=== PATIENT | male | born 1990 | race Caucasian/White ===

== ENCOUNTER 2017-12-21 10:38 | Inpatient (IN) | payer BC ==
[2017-12-21 11:04] VITALS: BMI 30.1
--- NOTE | 2017-12-21 13:10 | HP ---
CIWA Score - CIWA Score Nausea/Vomitin (vomited x 2) Muscle Tremors: 4-Moderate,w/Arms Extend Anxiety: 4-Mod. Anxious/Guarded Agitation: 4-Moderately Restless Paroxysmal Sweats: 1-Minimal Palms Moist Orientation: 0-Oriented Tacttile Disturbances: 0-None Auditory Disturbances: 0-None Visual Disturbances: 0-None Headache: 1-Very Mild CIWA-Ar Total Score: 17 Admission ROS S - HPI Chief Complaint: Alcohol withdrawal symptoms Allergies/Adverse Reactions: Allergies Allergy/AdvReac Type Severity Reaction Status Date / Time No Known Allergies Allergy Verified 12/21/17 13:02 History of Present Illness: 27 years old with 5 years of alcohol dependence is seeking admission to detox. Patient denies previous detox treatment and reports insignificant period of sobriety. He has medical history of anxiety and depression. He denies suicide attempt and suicidal ideation at this time. This is his first admission to [facility]. Exam Limitations: No Limitations - Ebola screening Have you traveled outside of the country in the last 21 days: No Have you had contact with anyone from an Ebola affected area: No Have you been sick,other than usual withdrawal symptoms: No Do you have a fever: No - Review of Systems Constitutional: Chills, Loss of Appetite, Malaise, Night Sweats, Changes in sleep EENT: reports: No Symptoms Reported Respiratory: reports: No Symptoms reported Cardiac: reports: No Symptoms Reported GI: reports: Diarrhea (x1), Nausea, Poor Appetite, Poor Fluid Intake, Vomiting ( x 2), Abdominal cramping : reports: No Symptoms Reported Musculoskeletal: reports: No Symptoms Reported Integumentary: reports: Dryness Neuro: reports: Tingling, Tremors Endocrine: reports: No Symptoms Reported, Flushing Hematology: reports: No Symptoms Reported Psychiatric: reports: Orientated x3, Anxious, Depressed Other Systems: Reviewed and Negative Patient History - Patient Medical History Hx Anemia: No Hx Asthma: No Hx Chronic Obstructive Pulmonary Disease (COPD): No Hx Cardiac Disorders: No Hx Congestive Heart Failure: No Hx Hypertension: No Hx Hypercholesterolemia: No HX Cerebrovascular Accident: No Hx Seizures: No Hx Diabetes: No Hx Gastrointestinal Disorders: No Hx Liver Disease: No Hx Genitourinary Disorders: No Hx Sexually Transmitted Disorders: No Hx Renal Disease (ESRD): No Hx Thyroid Disease: No Hx Human Immunodeficiency Virus (HIV): No (Negative 2014) Hx Hepatitis C: No Hx Depression: Yes Hx Suicide Attempt: No (Denies suicidal attempt and suicidal ideation at this time) Hx Bipolar Disorder: No Hx Schizophrenia: No Other Medical History: Anxiety, PTSD - Patient Surgical History Past Surgical History: No - PPD History Previous Implant?: No Documented Results: Negative w/o proof Implanted On Prior [facility] Admission?: No PPD to be Administered?: Yes - Reproductive History Patient is a Female of Child Bearing Age (11 -55 yrs old): No (MALE) - Smoking Cessation Smoking history: Current every day smoker Have you smoked in the past 12 months: Yes Aproximately how many cigarettes per day: 5 Hx Chewing Tobacco Use: No Initiated information on smoking cessation: Yes 'Breaking Loose' booklet given: 12/21/17 - Substance & Tx. History Hx Alcohol Use: Yes Hx Substance Use: Yes Substance Use Type: Alcohol Hx Substance Use Treatment: Yes - Substances Abused Alcohol Route: Oral Frequency: Daily Amount used: 15 CANS BEER/12OZ Age of first use: 22 Date of Last Use: 12/20/17 Alprazolam (Xanax) Route: Oral Frequency: Daily Amount used: 3/ 1MG Age of first use: 24 Date of Last Use: 12/20/17 Family Disease History - Family Disease History Family History: Denies Admission Physical Exam S - Vital Signs Vital Signs: Vital Signs - 24 hr 12/21/17 10:55 Temperature 96.9 F L Pulse Rate 75 Respiratory 18 Rate Blood Pressure 117/66 - Physical General Appearance: Yes: Moderate Distress HEENTM: Yes: EOMI, Normal ENT Inspection, Normal Voice, NATHAN Respiratory: Yes: Normal Breath Sounds, No Respiratory Distress Neck: Yes: Supple Breast: Yes: Breast Exam Deferred Cardiology: Yes: Regular Rhythm, Regular Rate, S1, S2 Abdominal: Yes: Normal Bowel Sounds, Soft Genitourinary: Yes: Within Normal Limits Back: Yes: Normal Inspection Musculoskeletal: Yes: Within Normal Limits Extremities: Yes: Normal Inspection Integumentary: Yes: Dry Lymphatic: Yes: Within Normal Limits - Diagnostic (1) Alcohol dependence with uncomplicated withdrawal Current Visit: Yes Status: Chronic (2) Sedative, hypnotic or anxiolytic dependence with withdrawal, uncomplicated Current Visit: Yes Status: Chronic (3) Nicotine dependence Current Visit: Yes Status: Chronic (4) Anxiety Current Visit: Yes Status: Chronic (5) Depression Current Visit: Yes Status: Chronic Cleared for Admission [facility] - Detox or Rehab [facility] Level of Care: Medically Managed Detox Regimen/Protocol: Valium [facility] Breath Alcohol Content Breath Alcohol Content: 0 Urine Drug Screen - Results Drug Screen Negative: No Urine Drug Screen Results: AMP-Amphetamines, BZO-Benzodiazepines
[2017-12-21] MEDS ORDERED: MAGNESIUM CITRATE 300 ML BOTTLE PO PRN (13:17)
[2017-12-21] MEDS ORDERED: diazePAM 5 MG TABLET PO ONE (13:17)
[2017-12-21] MEDS ORDERED: IBUPROFEN 400 MG TABLET (FP) PO PRN (13:17)
[2017-12-21] MEDS ORDERED: MAGNESIUM HYDROX 2400MG/30ML ORAL SUSPENSION 30 ML CUP PO PRN (13:17)
[2017-12-21] MEDS ORDERED: P-EPHED 60MG/TRIPROLIDI 2.5MG TABLET PO PRN (13:17)
[2017-12-21] MEDS ORDERED: guaiFENesin/D-METHORPHAN HB 10 ML UNIT-DOSE CUPS PO PRN (13:17)
[2017-12-21] MEDS ORDERED: LOPERAMIDE HCL 2 MG CAPSULE PO PRN (13:17)
[2017-12-21] MEDS ORDERED: MAG HYDROX/AL HYDROX/SIMETH 30 ML UNIT-DOSE CUP PO PRN (13:17)
[2017-12-21] MEDS ORDERED: ACETAMINOPHEN 325 MG TABLET (FP) PO PRN (13:17)
[2017-12-21] MEDS ORDERED: MENTHOL/PHENOL 1 EACH UD MM PRN (14:19)
[2017-12-21] MEDS: diazePAM 5 MG TABLET PO SCH ×2 (14:41→22:27)
--- NOTE | 2017-12-21 16:27 | EKG ---
Test Reason : Blood Pressure : / mmHG Vent. Rate : 067 BPM Atrial Rate : 067 BPM P-R Int : 152 ms QRS Dur : 084 ms QT Int : 386 ms P-R-T Axes : 046 054 029 degrees QTc Int : 407 ms NORMAL SINUS RHYTHM NORMAL ECG NO PREVIOUS ECGS AVAILABLE Confirmed by LETY ROSSI, MEGHAN ([id number]) on 12/21/2017 4:27:11 PM Referred By: Confirmed By:MEGHAN DAVIDSON MD
[2017-12-21] MEDS: diazePAM 5 MG TABLET PO PRN (18:15)
[2017-12-21] MEDS ORDERED: MELATONIN 5 MG TABLETS PO PRN (22:00)
[2017-12-21] MEDS: THIAMINE HCL 100 MG TABLET (FP) PO SCH (22:27)
[2017-12-22 01:18] LABS: URINE APPEARANCE CLEAR; URINE BILIRUBIN NEGATIVE (<2.0 mg/dL); URINE BLOOD NEGATIVE (NEGATIVE); URINE COLOR STRAW; URINE GLUCOSE (UA) NEGATIVE (NEGATIVE); URINE KETONE NEGATIVE (NEGATIVE); URINE LEUK ESTERASE NEGATIVE (NEGATIVE); URINE NITRITE NEGATIVE (NEGATIVE); URINE PROTEIN NEGATIVE (NEGATIVE); URINE UROBILINOGEN NEGATIVE mg/dL (0.2-1.0)
[2017-12-22] MEDS: diazePAM 5 MG TABLET PO SCH ×3 (05:16→22:12)
[2017-12-22] MEDS: NICOTINE POLACRILEX 2 MG GUM BUC PRN ×2 (05:17→20:58)
--- NOTE | 2017-12-22 08:35 | CONSULT ---
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 Substance Abuse History: Smoking history: Current every day smoker. Have you smoked in the past 12 months: Yes. Aproximately how many cigarettes per day: 5. Hx Chewing Tobacco Use: No. Initiated information on smoking cessation: Yes. 'Breaking Loose' booklet given: 12/21/17. - Substance & Tx. History. Hx Alcohol Use: Yes. Hx Substance Use: Yes. Substance Use Type: Alcohol. Hx Substance Use Treatment: Yes. - Substances Abused. Alcohol. Route: Oral. Frequency: Daily. Amount used: 15 CANS BEER/12OZ. Age of first use: 22. Date of Last Use: 12/20/17. Alprazolam (Xanax). Route: Oral. Frequency: Daily. Amount used: 3/ 1MG. Age of first use: 24. Date of Last Use: 12/20/17. Urine Drug Screen Results: AMP-Amphetamines, BZO-Benzodiazepines Medical History: Denies significant medical issues, obesity Psychiatric History: Patient reports hisory of depression and anxiety, , reports psychiatric admission for safety back on about 10 years ago, reports currently taking: Prozac 40mg poqd. Ambien 10mg po qhs Physical/Sexual Abuse/Trauma History: Denies Additional Comment: Urine Drug Screen Results: AMP-Amphetamines, BZO- Benzodiazepines. Prozac 40mg poqd. Ambien 10mg po qhs Mental Status Exam - Mental Status Exam Alert and Oriented to: Person Cognitive Function: Fair Patient Appearance: Unkempt Mood: Apprehensive Affect: Mood Congruent Patient Behavior: Cooperative Speech Pattern: Appropriate Voice Loudness: Mildly Soft/Quiet Thought Process: Goal Oriented Thought Disorder: Being Controlled Hallucinations: Denies Suicidal Ideation: Denies Homicidal Ideation: Denies Insight/Judgement: Fair Sleep: Difficulty falling asleep Appetite: Weight gain Muscle strength/Tone: Mild Hypotonicity Gait/Station: Normal Additional Comments: Prozac 40mg poqd. Ambien 10mg po qhs Psychiatric Findings - Problem List ([place] 1, 2,3) (1) Amphetamine abuse Current Visit: Yes Status: Acute (2) Drug-induced mood disorder Current Visit: Yes Status: Acute (3) Alcohol dependence with uncomplicated withdrawal Current Visit: Yes Status: Chronic (4) Nicotine dependence Current Visit: Yes Status: Chronic (5) Sedative, hypnotic or anxiolytic dependence with withdrawal, uncomplicated Current Visit: Yes Status: Chronic - Initial Treatment Plan Initial Treatment Plan: Prozac 40mg poqd. Ambien 10mg po qhs
--- NOTE | 2017-12-22 08:46 | PN ---
S CIWA - CIWA Score Nausea/Vomitin-Mild Nausea/No Vomiting Muscle Tremors: 4-Moderate,w/Arms Extend Anxiety: 4-Mod. Anxious/Guarded Agitation: 4-Moderately Restless Paroxysmal Sweats: 1-Minimal Palms Moist Orientation: 0-Oriented Tacttile Disturbances: 0-None Auditory Disturbances: 0-None Visual Disturbances: 0-None Headache: 0-None Present CIWA-Ar Total Score: 14 BHS Progress Note (SOAP) Subjective: gi distress sweat tremor anxiety restlessness Objective: 12/22/17 08:47 Vital Signs Temperature 97.0 F L 12/22/17 06:21 Pulse Rate 77 12/22/17 06:21 Respiratory Rate 18 12/22/17 06:21 Blood Pressure 115/72 12/22/17 06:21 O2 Sat by Pulse Oximetry (%) Laboratory Last Values Urine Color Straw 12/21/17 23:30 Urine Appearance Clear 12/21/17 23:30 Urine pH 7.0 (5.0-8.0) 12/21/17 23:30 Ur Specific [place] 1.003 (1.001-1.035) 12/21/17 23:30 Urine Protein Negative (NEGATIVE) 12/21/17 23:30 Urine Glucose (UA) Negative (NEGATIVE) 12/21/17 23:30 Urine Ketones Negative (NEGATIVE) 12/21/17 23:30 Urine Blood Negative (NEGATIVE) 12/21/17 23:30 Urine Nitrite Negative (NEGATIVE) 12/21/17 23:30 Urine Bilirubin Negative (<2.0 mg/dL) 12/21/17 23:30 Urine Urobilinogen Negative mg/dL (0.2-1.0) 12/21/17 23:30 Ur Leukocyte Esterase Negative (NEGATIVE) 12/21/17 23:30 lab noted Assessment: 12/22/17 08:48 withdrawal sx Plan: continue detox
[2017-12-22] MEDS: NICOTINE 14 MG/24 HOURS TOPICAL PATCH TD SCH (10:17)
[2017-12-22] MEDS: PRENATAL VITAMINS W/ FOLIC ACID TABLET (FP) PO SCH (10:18)
[2017-12-22] MEDS: FLUoxetine HCL 20 MG CAPSULE (FP) PO SCH (10:18)
[2017-12-22] MEDS: diazePAM 5 MG TABLET PO PRN ×3 (10:19→19:17)
[2017-12-22 12:33] LABS: ALBUMIN 3.3 g/dl (3.4-5.0); ANION GAP 6 (8-16); BILIRUBIN,TOTAL 0.2 mg/dL (0.2-1.0); BLOOD UREA NITROGEN 6 mg/dL (7-18); CALCIUM 8.6 mg/dL (8.5-10.1); CHLORIDE 106 mmol/L (98-107); CO2 30 mmol/L (21-32); CREATININE 0.8 mg/dL (0.7-1.3); GLUCOSE,RANDOM 94 mg/dL (74-106); POTASSIUM 3.5 mmol/L (3.5-5.1); SGOT/AST 29 U/L (15-37); SGPT/ALT 35 U/L (12-78); SODIUM 142 mmol/L (136-145); TOT PROT 6.2 g/dl (6.4-8.2)
[2017-12-22 12:34] LABS: ALK PHOS 69 U/L (45-117)
[2017-12-22 14:15] LABS: HEMATOCRIT 41.4 % (35.4-49); HEMOGLOBIN 14.3 GM/dL (11.7-16.9); MCHC 34.7 g/dl (32.0-35.9); MEAN CELL VOLUME 92.5 fl (80-96); MEAN PLT VOLUME 8.8 fl (7.5-11.1); PLATELET COUNT 250 K/MM3 (134-434); RBC 4.47 M/mm3 (4.00-5.60); RDW 14.1 % (11.9-15.9); WHITE BLOOD COUNT 7.6 K/mm3 (4.0-10.0)
[2017-12-22] MEDS: ZOLPIDEM TARTRATE 10 MG TABLET (PARK CARE ONLY) PO PRN (22:12)
[2017-12-22] MEDS: THIAMINE HCL 100 MG TABLET (FP) PO SCH (22:13)
[2017-12-23] MEDS: diazePAM 5 MG TABLET PO SCH ×2 (10:27→22:23)
[2017-12-23] MEDS: FLUoxetine HCL 20 MG CAPSULE (FP) PO SCH (10:27)
[2017-12-23] MEDS: PRENATAL VITAMINS W/ FOLIC ACID TABLET (FP) PO SCH (10:27)
[2017-12-23] MEDS: NICOTINE 14 MG/24 HOURS TOPICAL PATCH TD SCH (10:27)
--- NOTE | 2017-12-23 11:23 | PN ---
S CIWA - CIWA Score Nausea/Vomitin-No Nausea/No Vomiting Muscle Tremors: 4-Moderate,w/Arms Extend Anxiety: 3 Agitation: 2 Paroxysmal Sweats: 1-Minimal Palms Moist Orientation: 0-Oriented Tacttile Disturbances: 1-Very Mild Itch/Numbness Auditory Disturbances: 0-None Visual Disturbances: 0-None Headache: 1-Very Mild CIWA-Ar Total Score: 12 BHS Progress Note (SOAP) Subjective: sweat tremor anxiety restlessness Objective: 12/23/17 11:22 Vital Signs Temperature 97.3 F L 12/23/17 10:47 Pulse Rate 84 12/23/17 10:47 Respiratory Rate 18 12/23/17 10:47 Blood Pressure 126/75 12/23/17 10:47 O2 Sat by Pulse Oximetry (%) Laboratory Last Values WBC 7.6 K/mm3 (4.0-10.0) 12/22/17 07:00 RBC 4.47 M/mm3 (4.00-5.60) 12/22/17 07:00 Hgb 14.3 GM/dL (11.7-16.9) 12/22/17 07:00 Hct 41.4 % (35.4-49) 12/22/17 07:00 MCV 92.5 fl (80-96) 12/22/17 07:00 MCH 32.0 pg (25.7-33.7) 12/22/17 07:00 MCHC 34.7 g/dl (32.0-35.9) 12/22/17 07:00 RDW 14.1 % (11.9-15.9) 12/22/17 07:00 Plt Count 250 K/MM3 (134-434) 12/22/17 07:00 MPV 8.8 fl (7.5-11.1) 12/22/17 07:00 Sodium 142 mmol/L (136-145) 12/22/17 07:00 Potassium 3.5 mmol/L (3.5-5.1) 12/22/17 07:00 Chloride 106 mmol/L (98-107) 12/22/17 07:00 Carbon Dioxide 30 mmol/L (21-32) 12/22/17 07:00 Anion Gap 6 (8-16) L 12/22/17 07:00 BUN 6 mg/dL (7-18) L 12/22/17 07:00 Creatinine 0.8 mg/dL (0.7-1.3) 12/22/17 07:00 Creat Clearance w eGFR > 60 (>60) 12/22/17 07:00 Random Glucose 94 mg/dL (74-106) 12/22/17 07:00 Calcium 8.6 mg/dL (8.5-10.1) 12/22/17 07:00 Total Bilirubin 0.2 mg/dL (0.2-1.0) 12/22/17 07:00 AST 29 U/L (15-37) 12/22/17 07:00 ALT 35 U/L (12-78) 12/22/17 07:00 Alkaline Phosphatase 69 U/L (45-117) 12/22/17 07:00 Total Protein 6.2 g/dl (6.4-8.2) L 12/22/17 07:00 Albumin 3.3 g/dl (3.4-5.0) L 12/22/17 07:00 Urine Color Straw 12/21/17 23:30 Urine Appearance Clear 12/21/17 23:30 Urine pH 7.0 (5.0-8.0) 12/21/17 23:30 Ur Specific [place] 1.003 (1.001-1.035) 12/21/17 23:30 Urine Protein Negative (NEGATIVE) 12/21/17 23:30 Urine Glucose (UA) Negative (NEGATIVE) 12/21/17 23:30 Urine Ketones Negative (NEGATIVE) 12/21/17 23:30 Urine Blood Negative (NEGATIVE) 12/21/17 23:30 Urine Nitrite Negative (NEGATIVE) 12/21/17 23:30 Urine Bilirubin Negative (<2.0 mg/dL) 12/21/17 23:30 Urine Urobilinogen Negative mg/dL (0.2-1.0) 12/21/17 23:30 Ur Leukocyte Esterase Negative (NEGATIVE) 12/21/17 23:30 lab noted Assessment: 12/23/17 11:22 withdrawal sx Plan: continue detox
[2017-12-23] MEDS: NICOTINE POLACRILEX 2 MG GUM BUC PRN (13:43)
[2017-12-23] MEDS: diazePAM 5 MG TABLET PO PRN (13:44)
[2017-12-23] MEDS: ZOLPIDEM TARTRATE 10 MG TABLET (PARK CARE ONLY) PO PRN (22:23)
[2017-12-23] MEDS: THIAMINE HCL 100 MG TABLET (FP) PO SCH (22:23)
[2017-12-24] MEDS: diazePAM 5 MG TABLET PO PRN (05:17)
--- NOTE | 2017-12-24 10:14 | PN ---
BHS Progress Note (SOAP) Subjective: interrrupted sleep, sweats, shakes, achy Objective: 12/24/17 10:13 Vital Signs Temperature 96.4 F L 12/24/17 09:21 Pulse Rate 76 12/24/17 09:21 Respiratory Rate 20 12/24/17 09:21 Blood Pressure 142/86 12/24/17 09:21 O2 Sat by Pulse Oximetry (%) Laboratory Tests 12/21/17 12/22/17 12/22/17 23:30 07:00 07:00 WBC 7.6 RBC 4.47 Hgb 14.3 Hct 41.4 MCV 92.5 MCH 32.0 MCHC 34.7 RDW 14.1 Plt Count 250 MPV 8.8 Sodium 142 Potassium 3.5 Chloride 106 Carbon Dioxide 30 Anion Gap 6 L BUN 6 L Creatinine 0.8 Creat Clearance w eGFR > 60 Random Glucose 94 Calcium 8.6 Total Bilirubin 0.2 AST 29 ALT 35 Alkaline Phosphatase 69 Total Protein 6.2 L Albumin 3.3 L Urine Color Straw Urine Appearance Clear Urine pH 7.0 Ur Specific [place] 1.003 Urine Protein Negative Urine Glucose (UA) Negative Urine Ketones Negative Urine Blood Negative Urine Nitrite Negative Urine Bilirubin Negative Urine Urobilinogen Negative Ur Leukocyte Esterase Negative RPR Titer 12/22/17 07:00 WBC RBC Hgb Hct MCV MCH MCHC RDW Plt Count MPV Sodium Potassium Chloride Carbon Dioxide Anion Gap BUN Creatinine Creat Clearance w eGFR Random Glucose Calcium Total Bilirubin AST ALT Alkaline Phosphatase Total Protein Albumin Urine Color Urine Appearance Urine pH Ur Specific [place] Urine Protein Urine Glucose (UA) Urine Ketones Urine Blood Urine Nitrite Urine Bilirubin Urine Urobilinogen Ur Leukocyte Esterase RPR Titer Nonreactive pt aox3 in nad ambulating Assessment: 12/24/17 10:13 withdrawal sx's Plan: cont. detox increase fluids d/c in am
[2017-12-24] MEDS: FLUoxetine HCL 20 MG CAPSULE (FP) PO SCH (10:18)
[2017-12-24] MEDS: diazePAM 5 MG TABLET PO SCH ×2 (10:19→22:24)
[2017-12-24] MEDS: NICOTINE 14 MG/24 HOURS TOPICAL PATCH TD SCH (10:19)
[2017-12-24] MEDS: PRENATAL VITAMINS W/ FOLIC ACID TABLET (FP) PO SCH (10:19)
[2017-12-24] MEDS: NICOTINE POLACRILEX 2 MG GUM BUC PRN ×2 (13:01→17:41)
[2017-12-24] MEDS: ZOLPIDEM TARTRATE 10 MG TABLET (PARK CARE ONLY) PO PRN (22:24)
[2017-12-24] MEDS: THIAMINE HCL 100 MG TABLET (FP) PO SCH (22:24)
--- NOTE | 2017-12-25 08:53 | DS ---
[facility] Detox Discharge Summary Admission Date: 12/21/17 Discharge Date: 12/25/17 - History Present History: Alcohol Dependence - Physical Exam Results Vital Signs: Vital Signs Temperature 97.5 F L 12/25/17 06:00 Pulse Rate 83 12/25/17 06:00 Respiratory Rate 18 12/25/17 06:00 Blood Pressure 134/77 12/25/17 06:00 O2 Sat by Pulse Oximetry (%) Pertinent Admission Physical Exam Findings: Vital Signs Temperature 97.5 F L 12/25/17 06:00 Pulse Rate 83 12/25/17 06:00 Respiratory Rate 18 12/25/17 06:00 Blood Pressure 134/77 12/25/17 06:00 O2 Sat by Pulse Oximetry (%) Laboratory Last Values WBC 7.6 K/mm3 (4.0-10.0) 12/22/17 07:00 RBC 4.47 M/mm3 (4.00-5.60) 12/22/17 07:00 Hgb 14.3 GM/dL (11.7-16.9) 12/22/17 07:00 Hct 41.4 % (35.4-49) 12/22/17 07:00 MCV 92.5 fl (80-96) 12/22/17 07:00 MCH 32.0 pg (25.7-33.7) 12/22/17 07:00 MCHC 34.7 g/dl (32.0-35.9) 12/22/17 07:00 RDW 14.1 % (11.9-15.9) 12/22/17 07:00 Plt Count 250 K/MM3 (134-434) 12/22/17 07:00 MPV 8.8 fl (7.5-11.1) 12/22/17 07:00 Sodium 142 mmol/L (136-145) 12/22/17 07:00 Potassium 3.5 mmol/L (3.5-5.1) 12/22/17 07:00 Chloride 106 mmol/L (98-107) 12/22/17 07:00 Carbon Dioxide 30 mmol/L (21-32) 12/22/17 07:00 Anion Gap 6 (8-16) L 12/22/17 07:00 BUN 6 mg/dL (7-18) L 12/22/17 07:00 Creatinine 0.8 mg/dL (0.7-1.3) 12/22/17 07:00 Creat Clearance w eGFR > 60 (>60) 12/22/17 07:00 Random Glucose 94 mg/dL (74-106) 12/22/17 07:00 Calcium 8.6 mg/dL (8.5-10.1) 12/22/17 07:00 Total Bilirubin 0.2 mg/dL (0.2-1.0) 12/22/17 07:00 AST 29 U/L (15-37) 12/22/17 07:00 ALT 35 U/L (12-78) 12/22/17 07:00 Alkaline Phosphatase 69 U/L (45-117) 12/22/17 07:00 Total Protein 6.2 g/dl (6.4-8.2) L 12/22/17 07:00 Albumin 3.3 g/dl (3.4-5.0) L 12/22/17 07:00 Urine Color Straw 12/21/17 23:30 Urine Appearance Clear 12/21/17 23:30 Urine pH 7.0 (5.0-8.0) 12/21/17 23:30 Ur Specific [place] 1.003 (1.001-1.035) 12/21/17 23:30 Urine Protein Negative (NEGATIVE) 12/21/17 23:30 Urine Glucose (UA) Negative (NEGATIVE) 12/21/17 23:30 Urine Ketones Negative (NEGATIVE) 12/21/17 23:30 Urine Blood Negative (NEGATIVE) 12/21/17 23:30 Urine Nitrite Negative (NEGATIVE) 12/21/17 23:30 Urine Bilirubin Negative (<2.0 mg/dL) 12/21/17 23:30 Urine Urobilinogen Negative mg/dL (0.2-1.0) 12/21/17 23:30 Ur Leukocyte Esterase Negative (NEGATIVE) 12/21/17 23:30 RPR Titer Nonreactive (NONREACTIVE) 12/22/17 07:00 lab noted - Treatment Hospital Course: Detox Protocol Followed, Detoxed Safely, Responded well, Discharged Condition Good, Rehab Referral Accepted Patient has Accepted a [facility] Referral to: [facility] - Medication Discharge Medications: Ambulatory Orders Dextroamphetamine/Amphetamine [Adderall Xr 30 mg Capsule] 30 mg PO DAILY Zolpidem Tartrate [Ambien] 10 mg PO HS 12/21/17 Fluoxetine HCl [Prozac] 40 mg PO DAILY #30 capsule 12/22/17 - Diagnosis (1) Alcohol dependence with uncomplicated withdrawal Current Visit: Yes Status: Acute (2) Anxiety Current Visit: Yes Status: Suspected (3) Nicotine dependence Current Visit: Yes Status: Acute Qualifiers: Nicotine product type: cigarettes Substance use status: in withdrawal Qualified Code(s): F17.213 - Nicotine dependence, cigarettes, with withdrawal - AMA Did Patient Leave Against Medical Advice: No
--- NOTE | 2017-12-25 08:58 | PN ---
S Progress Note (SOAP) Subjective: I feeling better denies alcohol withdrawal sx denies pain denies suicidal denies homocidal no sefl destructive behavior Objective: 12/25/17 08:57 cardiac s1s2 pulmonary clear bilaterally abdomen soft none tenderness extremities full range of motion Assessment: 12/25/17 08:57 completed alcohol detox Plan: after[facility]
[2017-12-25] MEDS ORDERED: diazePAM 5 MG TABLET PO SCH (10:00)
[2017-12-25] MEDS: FLUoxetine HCL 20 MG CAPSULE (FP) PO SCH (10:12)
[2017-12-25] MEDS: NICOTINE 14 MG/24 HOURS TOPICAL PATCH TD SCH (10:13)
[2017-12-25] MEDS: PRENATAL VITAMINS W/ FOLIC ACID TABLET (FP) PO SCH (10:13)
[2017-12-25] MEDS: NICOTINE POLACRILEX 2 MG GUM BUC PRN (12:27)
[2017-12-25 15:04] VITALS: BP 135/74; PULSE 88; TEMP 97.7
== END 2017-12-25 16:40 | disposition home or self-care (01) | DRG 897 ==
LOC: YASAS 10:38 → Y6N 13:27
PROVIDERS: ADMIT Internal Medicine; ATTEND Internal Medicine
PROC: HZ2ZZZZ Detoxification Services for Substance Abuse Treatment (ICD-10-PCS; principal; 2017-12-21)
DX: F13.230 Sedative, hypnotic or anxiolytic dependence with withdrawal, uncomplicated (principal); F10.230 Alcohol dependence with withdrawal, uncomplicated; F17.210 Nicotine dependence, cigarettes, uncomplicated; F15.10 Other stimulant abuse, uncomplicated; F41.9 Anxiety disorder, unspecified; F19.24 Other psychoactive substance dependence with psychoactive substance-induced mood disorder; F43.10 Post-traumatic stress disorder, unspecified; F32.9 Major depressive disorder, single episode, unspecified
CPT/HCPCS: 36415; 80053; 81003; 85027; 86593; 93005; 93010